=== PATIENT | male | born 1990 | race Caucasian/White ===

== ENCOUNTER 2016-09-30 20:31 | Emergency (ER) | payer MEDICAID | END 2016-09-30 22:08 | disposition left against medical advice (07) | LOC: ER 20:35 | DX: Z53.21 Procedure and treatment not carried out due to patient leaving prior to being seen by health care provider (principal) ==

== ENCOUNTER 2016-10-01 15:49 | Emergency (ER) | payer MEDICAID ==
[~2016-10-01] VITALS: Ht 188 cm; Wt 104.3 kg
[2016-10-01 15:57] VITALS: BP 128/71
[2016-10-01] MEDS ORDERED: IBUPROFEN 600 MG TABLET PO ONE ×2 (16:23→16:30)
[2016-10-01] MEDS ORDERED: HYDROCODONE/APAP 5/325MG 1 EACH TABLET ONE (16:23)
[2016-10-01] MEDS ORDERED: HYDROCODONE/APAP 5/325MG 1 EACH TABLET PO ONE (16:30)
== END 2016-10-01 17:47 | disposition home or self-care (01) ==
LOC: ER 15:51
DX: M25.551 Pain in right hip (principal); G89.29 Other chronic pain; W18.30XA Fall on same level, unspecified, initial encounter; Y93.89 Activity, other specified; Y92.89 Other specified places as the place of occurrence of the external cause; Y99.8 Other external cause status
CPT/HCPCS: 73502; 99284; A4606; Z7610; 73510-TC

== ENCOUNTER 2016-10-07 22:27 | Emergency (ER) | payer MEDICAID ==
[~2016-10-07] VITALS: Ht 188 cm; Wt 104.3 kg
[2016-10-07 22:49] VITALS: BP 114/71
== END 2016-10-07 23:06 | disposition home or self-care (01) ==
LOC: ER 22:30
DX: J06.9 Acute upper respiratory infection, unspecified (principal); F17.200 Nicotine dependence, unspecified, uncomplicated; Z71.6 Tobacco abuse counseling
CPT/HCPCS: 99281; A4606; Z7610; Z7502

== ENCOUNTER 2017-06-19 21:27 | Emergency (ER) | payer MEDICAID ==
--- NOTE | 2017-06-19 21:52 | NUR ---
PT WANTED US TO FIX HIS BROKEN TOOTH, PT INFORMED WE DONT FIX TEETH PT STATES HE WILL GOT O DENTIST TOMMORROW
== END 2017-06-19 21:54 | disposition left against medical advice (07) ==
LOC: ER 21:28
DX: Z53.21 Procedure and treatment not carried out due to patient leaving prior to being seen by health care provider (principal)

== ENCOUNTER 2018-11-03 06:21 | Emergency (ER) | payer MEDICAID ==
[~2018-11-03] VITALS: Ht 185.4 cm; Wt 99.8 kg
--- NOTE | 2018-11-03 06:35 | NUR ---
PT BIBSELF C/O NAUSEA AND VOMITING X 2 WEEKS. PT STATES "I WAKE UP UP AT NIGHT AND VOMIT". PT DENIES PAIN AT THIS TIME. PT AOX4. NAD NOTED. RESP EVEN AND UNLABORED. PT ON MONITOR IN BED 7. WILL CONTINUE TO MONITOR.
--- NOTE | 2018-11-03 06:40 | NUR ---
BLOOD DRAWN AND SENT TO LAB
--- NOTE | 2018-11-03 06:41 | NUR ---
URINE COLLECTED AND SENT TO LAB
[2018-11-03] MEDS ORDERED: IV NS 0.9% 1,000 ML BAG IV ONE (07:00)
[2018-11-03] MEDS ORDERED: FAMOTIDINE/PF INJ 20 MG/2 ML VIAL IV ONE ×2 (07:00→07:06)
[2018-11-03] MEDS ORDERED: ONDANSETRON HCL/PF 4 MG/2 ML VIAL IVP ONE (07:00)
[2018-11-03] MEDS ORDERED: CAPSAICIN 0.025% CREAM 56.6 GM TUBE TP ONE (07:00)
[2018-11-03] MEDS ORDERED: CAPSAICIN 0.025% CREAM 56.6 GM TUBE TP SCH (07:00)
[2018-11-03] MEDS ORDERED: ONDANSETRON HCL/PF 4 MG/2 ML VIAL ONE (07:06)
[2018-11-03 07:26] LABS: BASOPHILS # (AUTO) 0.1 /CMM (0.0-0.2); HEMATOCRIT 46 % (39-51); HEMOGLOBIN 15.7 g/dL (13.5-17.5); LYMPHOCYTES # (AUTO) 2.3 /CMM (0.8-4.8); LYMPHOCYTES % (AUTO) 28.5 % (20.0-44.0); MEAN CORPUSCULAR HGB CONC 34 g/dl (31.0-36.0); MEAN CORPUSCULAR VOLUME 84 fL (80-96); MONOCYTES # (AUTO) 0.6 /CMM (0.1-1.30); MONOCYTES % (AUTO) 6.9 % (2.0-12.0); NEUTROPHILS # (AUTO) 5.1 /CMM (1.8-8.9); NEUTROPHILS % (AUTO) 62.6 % (43.0-81.0); PLATELET COUNT (AUTO) 326 /CMM (150-450); RED BLOOD CELL COUNT(AUTO) 5.46 MIL/uL (4.5-6.0); WHITE BLOOD COUNT (AUTO) 8.1 K/uL (4.3-11.0)
[2018-11-03 07:31] LABS: CALCIUM, SERUM 9.5 mg/dL (8.5-10.1); POTASSIUM 3.7 mmol/L (3.5-5.1)
[2018-11-03 07:42] LABS: ALBUMIN 4.4 g/dL (3.4-5.0); BILIRUBIN,DIRECT 0.2 mg/dL (0.0-0.2); BILIRUBIN,TOTAL 0.8 mg/dL (0.2-1.0); TOTAL PROTEIN, SERUM 7.7 g/dL (6.4-8.2)
--- NOTE | 2018-11-03 07:48 | NUR ---
REPORT RECEIVED FROM ALLY NAVA FOR JOSE ANTONIO, PT IN BED COMFORTABLE.
--- NOTE | 2018-11-03 07:48 | NUR ---
REPORT GIVEN TO ELIJAH CHANEL FOR JOSE ANTONIO
--- NOTE | 2018-11-03 08:48 | NUR ---
IV removed. Catheter intact and site benign. Pressure and 4x4 applied to site. No bleeding noted.Patient discharged to home in stable condition. Written and verbal after care instructions given. Patient verbalizes understanding of instruction.
[2018-11-03 08:50] VITALS: BP 115/65
== END 2018-11-03 08:51 | disposition home or self-care (01) ==
LOC: ER 06:21
DX: R11.2 Nausea with vomiting, unspecified (principal); F12.90 Cannabis use, unspecified, uncomplicated; Z98.890 Other specified postprocedural states
CPT/HCPCS: 36415; 80048; 80076; 83690; 85025; 96361; 96374; 96375; 99283; A4606; J2405; J3490; J7030